=== PATIENT | male | born 1965 | race American Indian/Alaskan Native ===

== ENCOUNTER 2020-09-13 09:36 | Emergency (ER) | payer MEDICARE ==
[2020-09-13 09:55] VITALS: BP 151/91
--- NOTE | 2020-09-13 10:25 | Event Note ---
ED Screening Note Date of service: 09/13/20 Time: 10:25 ED Screening Note: 55-year-old -Citizen Of [place] male presents to the emergency room stating he had blurred vision for 6 to 8 months. He denies any headache no nausea no vomiting. Patient states that he sometimes sees blood when he blows his nose. Patient state he had an episode where he felt like he was going to pass out while at work. Patient has no past medical history except bipolar and schizophrenia and is currently on no medications. This initial assessment/diagnostic orders/clinical plan/treatment(s) is/are subject to change based on patients health status, clinical progression and re- assessment by fellow clinical providers in the ED. Further treatment and workup at subsequent clinical providers discretion. Patient/guardian urged not to elope from the ED as their condition may be serious if not clinically assessed and managed. Initial orders include:
[2020-09-13 11:11] LABS: Basophils % (Auto) 0.7 % (0.0-1.8); Eosinophils # (Auto) 0.2 K/mm3 (0.0-0.4); Eosinophils % (Auto) 2.5 % (0.0-4.3); Hematocrit 49.2 % (35.5-45.6); Hemoglobin 16.5 gm/dl (11.8-15.2); Lymphocytes # (Auto) 1.8 K/mm3 (1.2-5.4); Lymphocytes % (Auto) 26.1 % (13.4-35.0); Mean Corpuscular HGB Conc 34 % (32-34); Mean Corpuscular Volume 88 fl (84-94); Monocytes # (Auto) 0.5 K/mm3 (0.0-0.8); Monocytes % (Auto) 7.6 % (0.0-7.3); Platelet Count 316 K/mm3 (140-440); Red Blood Count 5.59 M/mm3 (3.65-5.03); Red Cell Distribution Width 14.5 % (13.2-15.2)
[2020-09-13 11:51] LABS: Alanine Aminotransferase 35 units/L (7-56); Albumin 4.6 g/dL (3.9-5); BUN/Creatinine Ratio 12; Blood Urea Nitrogen 13 mg/dL (9-20); Calcium 9.7 mg/dL (8.4-10.2); Hemolysis Index 6
--- NOTE | 2020-09-13 13:23 | Emergency Department Report ---
ED General Adult HPI - General Chief complaint: Eye Problems Stated complaint: BLURRED VISION Time Seen by Provider: 09/13/20 13:15 Source: patient Mode of arrival: Ambulatory Limitations: No Limitations - History of Present Illness Initial comments: 55-year-old -[place] male presents to the emergency room stating he had blurred vision for 6 to 8 months. He denies any headache no nausea no vomiting. Patient states that he sometimes sees blood when he blows his nose. Patient state he had an episode where he felt like he was going to pass out while at work. Patient has no past medical history except bipolar and schizophrenia and is currently on no medications. Onset/Timin -: month(s) (Intermittent blurred vision) - Related Data Allergies Allergy/AdvReac Type Severity Reaction Status Date / Time No Known Allergies Allergy Unverified 09/13/20 09:52 ED Review of Systems ROS: Stated complaint: BLURRED VISION Other details as noted in HPI Comment: All other systems reviewed and negative ED Past Medical Hx - Past Medical History Previous Medical History?: Yes Hx Psychiatric Treatment: Yes (biplolar/schzio) - Social History Smoking Status: Current Every Day Smoker Substance Use Type: None ED Physical Exam - General Limitations: No Limitations General appearance: alert, in no apparent distress - Head Head exam: Present: atraumatic, normocephalic - Eye Eye exam: Present: normal appearance - ENT ENT exam: Present: mucous membranes moist - Neck Neck exam: Present: normal inspection - Respiratory Respiratory exam: Present: normal lung sounds bilaterally. Absent: respiratory distress - Cardiovascular Cardiovascular Exam: Present: regular rate, normal rhythm. Absent: systolic mu rmur, diastolic murmur, rubs, gallop - GI/Abdominal GI/Abdominal exam: Present: soft, normal bowel sounds - Rectal Rectal exam: Present: deferred - Extremities Exam Extremities exam: Present: normal inspection - Back Exam Back exam: Present: normal inspection - Neurological Exam Neurological exam: Present: alert, oriented X3 - Psychiatric Psychiatric exam: Present: normal affect, normal mood - Skin Skin exam: Present: warm, dry, intact, normal color. Absent: rash ED Course Vital Signs 09/13/20 09:52 Temperature 98.3 F Pulse Rate 86 Respiratory 18 Rate Blood Pressure 151/91 O2 Sat by Pulse 100 Oximetry ED Medical Decision Making - Lab Data Result diagrams: 09/13/20 10:48 09/13/20 10:48 - Medical Decision Making 55-year-old -[place] male presents to the emergency room stating he had blurred vision for 6 to 8 months. He denies any headache no nausea no vomiting. Patient states that he sometimes sees blood when he blows his nose. Patient state he had an episode where he felt like he was going to pass out while at work. Patient has no past medical history except bipolar and schizophrenia and is currently on no medications. Labs are normal nonactionable Visual acuity is 20/20 Discussed with patient he needs to follow-up with a primary care provider. Critical care attestation.: If time is entered above; I have spent that time in minutes in the direct care of this critically ill patient, excluding procedure time. ED Disposition Clinical Impression: Blurred vision, bilateral, Elevated blood pressure reading Disposition: DC-01 TO HOME OR SELFCARE Is pt being admited?: No Does the pt Need Aspirin: No Condition: Stable Instructions: Visual Disturbances Additional Instructions: Labs are all normal. Visual acuity is 20/20. I recommend to follow-up with a primary care provider. Also recommend to follow-up with a mental health provider. Referrals: PRIMARY MD MAGDIEL [Primary Care Provider] - 3-5 Days SARITHA CORRAL MD [Staff Physician] - 3-5 Days [facility] [Outside] - 3-5 Days Forms: Work/School Release Form(ED)
== END 2020-09-13 13:21 | disposition home or self-care (01) ==
LOC: ED 09:36
DX: H53.8 Other visual disturbances (principal); R03.0 Elevated blood-pressure reading, without diagnosis of hypertension; F31.9 Bipolar disorder, unspecified; F20.9 Schizophrenia, unspecified; F17.200 Nicotine dependence, unspecified, uncomplicated
CPT/HCPCS: 36415; 80053; 85025

== ENCOUNTER 2021-09-28 13:41 | Emergency (ER) | payer MEDICARE ==
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
[2021-09-28 18:20] VITALS: BP 183/99
== END 2021-09-28 18:20 | disposition home or self-care (01) ==
LOC: ED 13:41
DX: S00.01XA Abrasion of scalp, initial encounter (principal); S06.0X9A Concussion with loss of consciousness of unspecified duration, initial encounter; F17.200 Nicotine dependence, unspecified, uncomplicated; V89.2XXA Person injured in unspecified motor-vehicle accident, traffic, initial encounter; Y93.89 Activity, other specified; Y92.89 Other specified places as the place of occurrence of the external cause; Y99.8 Other external cause status
CPT/HCPCS: 70450; 99283